=== PATIENT | female | born 1980 | race Caucasian/White ===

== ENCOUNTER 2021-08-13 08:36 | Emergency (ER) | payer OTHER ==
[~2021-08-13 08:36] MED LIST: CEFUROXIME500 MG PO; IBUPROFEN800 MG PO; ONDANSETRON ODT4 MG SL; PYRIDIUM200 MG PO
[2021-08-13 11:01] LABS: RED BLOOD COUNT 4.88 M/UL (4.00-5.10)
[2021-08-13] MEDS ORDERED: MACROBID 100 M100 M1 PO (13:20)
== END 2021-08-13 13:37 | disposition home or self-care (01) ==
LOC: ER1 08:36
PROVIDERS: Nurse Practitioner
DX: N39.0 Urinary tract infection, site not specified (principal); F17.210 Nicotine dependence, cigarettes, uncomplicated
CPT/HCPCS: 71045; 80053; 81001; 83690; 84703; 85025; 87077; 87086; 87186; 96374; 96375; 99284; J0696; J1885; J2405; Q9967

== ENCOUNTER 2022-01-09 07:05 | Emergency (ER) | payer OTHER ==
[~2022-01-09 07:05] MED LIST changes: +MACROBID 100 M100 M1 PO
[2022-01-09 07:55] LABS: HEMOGLOBIN 13.6 gm/dl (12.3-15.3); RED BLOOD COUNT 3.94 M/UL (4.00-5.10); WHITE BLOOD COUNT 12.7 K/UL (4.5-11.0)
[2022-01-09 08:22] LABS: BUN/CREATININE RATIO 13 (0-10)
[2022-01-09] MEDS ORDERED: TORADOL 10 MG T10 MG PO (10:49)
[2022-01-09] MEDS ORDERED: OMNICEF 300 MG300 MG PO (10:49)
== END 2022-01-09 11:10 | disposition home or self-care (01) ==
LOC: ER1 07:05
PROVIDERS: Student in an Organized Health Care Education/Training Program
DX: J18.9 Pneumonia, unspecified organism (principal); F17.200 Nicotine dependence, unspecified, uncomplicated; Z88.8 Allergy status to other drugs, medicaments and biological substances
CPT/HCPCS: 71045; 80053; 82550; 82553; 84484; 85025; 85379; 96374; 96375; 99285; J0696; J1885

== ENCOUNTER → 2022-01-27 | Outpatient (CLI) | payer OTHER ==
[~2022-01-27] MED LIST changes: +OMNICEF 300 MG300 MG PO; +TORADOL 10 MG T10 MG PO
== END ==
LOC: KOH-I 10:33
DX: J18.9 Pneumonia, unspecified organism (principal)
CPT/HCPCS: 71046